=== PATIENT | male | born 1950 | race Caucasian/White ===

== ENCOUNTER 2023-10-31 19:09 | Emergency (ER) | payer MEDICARE ==
[~2023-10-31] VITALS: Ht 193 cm; Wt 74.8 kg
[2023-10-31 19:50] VITALS: BP_SYST 100; PULSE 83; RESP 18; TEMP 98.4; O2SAT 99
[2023-10-31] MEDS ORDERED: APIX5TAB PO (20:59)
[2023-10-31] MEDS: APIXABAN 2.5 MG TABLET PO ONE (21:09)
[2023-10-31 21:19] VITALS: BP_SYST 100; PULSE 83; RESP 18; TEMP 98.4; O2SAT 99
== END 2023-10-31 21:19 | disposition home or self-care (01) ==
LOC: SED 19:09
DX: I82.492 Acute embolism and thrombosis of other specified deep vein of left lower extremity (principal); Z79.899 Other long term (current) drug therapy
CPT/HCPCS: 93971; 99284